=== PATIENT | male | born 1975 | race African-American/Black ===

== ENCOUNTER 2025-02-06 19:41 | Emergency (ER) | payer MEDICAID ==
[~2025-02-06] VITALS: Ht 167.6 cm; Wt 68.2 kg
[2025-02-06 19:54] VITALS: BP 121/61; PULSE 78; RESP 18; TEMP 97.7; O2SAT 100
[2025-02-06] MEDS: BACITRACIN 0.9 GM PACKET OINTMENT TP ONE (20:38)
== END 2025-02-06 20:46 | disposition home or self-care (01) ==
LOC: EMS 19:46
DX: Z48.00 Encounter for change or removal of nonsurgical wound dressing (principal)
CPT/HCPCS: 99282; Z7502; Z7610